=== PATIENT | female | born 1980 | race Two or more races ===

== ENCOUNTER → 2024-07-11 | Outpatient (CLI) | payer BC, SELFPAY ==
--- NOTE | 2024-07-11 15:15 | XR_ITS ---
Examination: Screening digital mammography, bilateral Computer aided detection 3-D breast Tomosynthesis, bilateral Date and time of exam: July 11, 2024 1516 hours Compared to mammograms dating to October 15, 2021 Indication: Screening Technique: Nonmagnified MLO, CC views of the breasts to been obtained, reconstructed from 3-D Tomosynthesis images. R2 computer aided detection program utilized for evaluation of suspicious masses and/or abnormal calcifications. 3-D Tomosynthesis images obtained. Findings: The breasts are heterogeneously dense, which may obscure small masses 10 mm focal asymmetry upper outer left breast Benign calcifications Impression: BI-RADS Category 0: Incomplete: Need additional imaging evaluation 10 mm focal asymmetry upper outer left breast, recommend follow-up spot tomographic views of this asymmetry as well as bilateral breast sonography to complete the workup
--- NOTE | 2024-07-11 15:27 | XR_ITS ---
Examination: Knee, right , 3 views Technique: Knee AP, lateral, oblique 3 views Date and time of exam: July 11, 2024 1537 hours INDICATIONS: Knee pain one year. FINDINGS: Moderate osteopenia Mild to moderate tricompartment osteoarthritis, most severe medial patellofemoral joints Moderate knee effusion No fracture IMPRESSION: Mild to moderate tricompartment osteoarthritis
== END | disposition home or self-care (01) ==
LOC: CDIM 14:57
PROVIDERS: Referring Provider Physician Assistant; Visit Provider Physician Assistant
DX: Z12.31 Encounter for screening mammogram for malignant neoplasm of breast (principal); R92.8 Other abnormal and inconclusive findings on diagnostic imaging of breast; N64.89 Other specified disorders of breast; M17.12 Unilateral primary osteoarthritis, left knee
CPT/HCPCS: 73562; 77063; 77067

== ENCOUNTER → 2024-09-04 | Outpatient (CLI) | payer BC, SELFPAY ==
--- NOTE | 2024-09-04 | XR_ITS ---
Examination: Diagnostic digital mammography, unilateral, left Computer aided detection 3-D breast Tomosynthesis, unilateral Date and time of exam: September 04, 2024 0934 hours INDICATIONS: Mammogram July 11, 2024 10 mm focal asymmetry outer left breast CC view Technique: Nonmagnified MLO, CC views of the left breast have been obtained, reconstructed from 3-D Tomosynthesis images. R2 computer aided detection program utilized for evaluation of suspicious masses and/or abnormal calcifications. 3-D Tomosynthesis images obtained. Findings: The breast is heterogeneously dense, which may obscure small masses No suspicious mass is depicted Impression: BI-RADS category 2: Benign findings Return to yearly follow-up mammography
--- NOTE | 2024-09-04 09:00 | XR_ITS ---
Examination: Breast ultrasound complete, bilateral Date and time of exam: September 04, 2024 0916 hours INDICATIONS: Mammogram July 11, 2024 10 mm focal asymmetry upper outer left breast Technique: Real-time grayscale ultrasonographic imaging bilateral breasts, including all 4 quadrants as well as nipple retroareolar and axillary regions. Findings: Sonographic images right breast Multiple benign cysts, the largest in the 6:00 position 6 x 5 mm No solid nodules Sonographic images left breast Benign cysts, the largest in the 9:00 position 13 x 11 mm Solid nodules not depicted IMPRESSION: BI-RADS Category 2: Benign findings
== END | disposition home or self-care (01) ==
PROVIDERS: PCP Physician Assistant; Referring Provider Physician Assistant; Visit Provider Physician Assistant
DX: R92.323 Mammographic fibroglandular density, bilateral breasts (principal); N60.01 Solitary cyst of right breast; N60.02 Solitary cyst of left breast
CPT/HCPCS: 76641; 77061; 77065; G0279

== ENCOUNTER 2024-11-01 08:15 | Emergency (ER) | payer BC, SELFPAY ==
[2024-11-01 08:16] VITALS: BMI 28.8
[2024-11-01 08:23] VITALS: BP 127/87; PULSE 83; RESP 16; TEMP 36.7; O2SAT 97
--- NOTE | 2024-11-01 08:28 | XR_ITS ---
Examination: CT abdomen and pelvis without contrast. Coronal 3-D reconstructions. Sagittal 2-D reconstructions. Date and time of exam:November 01, 2024 10:20 PM Comparison August 13, 2010 INDICATIONS: Right flank pain beginning 2 days ago CTDI: vol (mGy): 8.04 DLP: (mGycm): 423 Technique: Axial images of the abdomen have been obtained, 3 mm slice thickness Intravenous contrast material has not been administered. Low dose protocols were performed. One or more of the following dose reduction techniques were used; automated exposure control, adjustment of the mA and/or KV according to patient size, use of iterative reconstruction technique. Findings: No focal liver or splenic lesions Absent gallbladder No pancreatic or adrenal mass No renal or ureteral calculi, no hydronephrosis 16mm fat-containing umbilical hernia Normal appendix Hypodense 5 cm pelvic mass contiguous with the posterior margin of the uterus, axial image 177, measuring 5 cm Uterus is retroverted Bladder intact No bladder mass or bladder calculi IMPRESSION: No renal or ureteral calculi, no hydronephrosis No bladder mass or bladder calculi Normal appendix 5 cm mass contiguous with the posterior margin of the uterine fundus, please see the pelvic sonogram report today indicating right ovarian cyst and prominence left ovary
--- NOTE | 2024-11-01 08:31 | EDNOTE_ITS ---
ED General RME/HPI General Chief complaint: Abdominal Pain Stated complaint: SHARP PAIN RLQ ABD RADIATING TO BACK SINCE Time Seen by Provider: 11/01/24 08:19 Arrival date/time: 11/01/24 08:15 Limitations: no limitations RME / HPI RME / HPI narrative: DR. TANVI ROSS ED EVALUATION: 43 year old female with past medical history significant for cholecystectomy presents to the Emergency Department with complaint of right lower quadrant pain that radiates to her right flank and right back areas onset 3 days. No associated symptoms. Related Data Previous Rx's ?Medication ?Instructions ?Recorded ibuprofen 600 mg tablet 600 mg PO TID PRN pain #30 t abs 11/01/24 Allergies Allergy/AdvReac Type Severity Reaction Status Date / Time acetaminophen Allergy Mild HIVES Verified 11/01/24 08:18 Review of Systems Review of Systems Systems Reviewed: All systems reviewed, normal except as documented Narrative Review of Systems: GEN: No fever, no chills, no weight loss EYES: No discharge, no visual changes, no pain HEENT: No ear pain, no congestion, no sore throat PULM: No shortness of breath, no cough, no congestion CV: No chest pain, no dyspnea on exertion, no palpitations GI: No nausea, no vomiting, no diarrhea, + right lower quadrant pain that radiates to her right flank and right back areas, no constipation : No frequency, no urgency and no dysuria MUSC/SKEL: No joint pain, + back pain SKIN: No rash PSYCH: No hallucinations, no depression HEME/LYMPH: No easy bleeding or bruising tendencies NEURO: No weakness, no headache Past Medical History Past Medical History RESPIRATORY: 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 ) GASTROINTESTINAL: Positive Gastrointestinal Disorders (H. Pylori 2019) Social History SMOKING STATUS: Never smoker SUBSTANCE USE: does not use ALCOHOL: Never ED Exam General Limitations: Present no limitations General appearance: Present alert and in no apparent distress Head Head exam: Present atraumatic, normocephalic and normal inspection Eye Eye exam: Present normal appearance, PERRL and EOMI ENT ENT exam: Present normal exam, normal oropharynx and mucous membranes moist Neck Neck exam: Present normal inspection, full ROM and trachea midline Chest Chest inspection: Present normal inspection and symmetric chest wall rise Respiratory Respiratory exam: Present normal lung sounds bilaterally Cardiovascular Cardiovascular exam: Present regular rate, normal rhythm and normal heart sounds Abdominal Exam Abdominal exam: Present soft, tenderness (right lower quadrant tenderness, right flank tenderness) and normal bowel sounds Extremities Exam Extremities exam: Present normal inspection and full ROM Back Exam Back exam: Present normal inspection and full ROM Neurological Exam Neurological exam: Present alert, oriented X3 and CN II-XII intact Psychiatric Psychiatric exam: Present normal affect and normal mood Skin Skin exam: Present warm, dry, intact and normal color Course Quality Measures none Orders Category Date Time Status CT abdomen pelvis wo con Stat Exams 11/01/24 08:28 Completed US pelvic complete Stat Exams 11/01/24 08:29 Completed CBC Stat Lab 11/01/24 09:43 Completed Comprehensive Metabolic Panel Stat Lab 11/01/24 09:43 Completed HCG,Qualitative Serum Stat Lab 11/01/24 09:43 Completed Urinalysis Stat Lab 11/01/24 08:48 Completed Ketorolac Inj [Toradol Inj] Med 11/01/24 08:29 Discontinued 30 mg IM X1 ONE Vital Signs Vital signs: Vital Signs Temperature 98.0 F 11/01/24 08:23 Pulse Rate 83 11/01/24 08:23 Respiratory Rate 16 11/01/24 08:23 Blood Pressure 127/87 H 11/01/24 08:23 Pulse Oximetry (%) 97 11/01/24 08:23 Oxygen Delivery Method Room Air 11/01/24 08:23 Discharge Plan Plan Patient Disposition: HOME (Self Care) Discharge Disposition comment: You need to repeat a pelvic ultrasound in 6 months. Your right ovarian cyst is 2.5 cm and your left ovary is prominent . Patient condition on transfer: Stable Prescriptions/Referrals Prescriptions/Med Rec: New ibuprofen 600 mg tablet 600 mg PO TID PRN (Reason: pain) Qty: 30 0RF Referrals: Anna Reed PA-C [Primary Care Provider] - In 1 week Problem List Clinical Impression: Ovarian cyst Patient/Caregiver Discharge Instructions Print Language: Dutch Stand Alone Forms: Kenia Award Info., Patient Portal Info Letter MDM Narrative [facility] hospital course: Prisclila Davey am scribing for and in the presence of Dr. Edmond. Clinical Information Provided by patient Medical Records Reviewed [facility] Meds/Rx Considered, not Ordered None Labs/Rad/Tests considered, not Ordered None Chronic Illness/Social Conditions Add or document further as needed: cholecystectomy Imaging Radiology reports / interpretation(s): Procedure(s): US pelvic complete Accession Number(s): [id number] cc: Anna Reed; Armando Edmond MD; Dean Eng MD~ Examination: Pelvic ultrasound, transabdominal, complete Technique: Transabdominal ultrasound of the pelvis performed using grayscale imaging Date and time of exam: November 01, 2024 0855 hours INDICATIONS: Right-sided pelvic pain beginning 3 days ago FINDINGS: Uterus 10.4 cm endometrial stripe 1.3 cm 8 mm cyst in the endometrium The fundus 4 mm calcification in the endometrium No intrauterine gestation No uterine mass Right ovary 5.5 cm arterial flow, 2.3 x 1.7 x 1.7 cm simple cyst Left ovary 4.9 cm arterial flow IMPRESSION: No uterine mass or intrauterine gestation Right ovarian simple cyst 2.3 x 1.7 x 1.7 cm Prominent left ovary, recommend 6 month follow-up pelvic sonography Dictated By: Dean Eng MD Procedure(s): CT abdomen pelvis wo [facility] Accession Number(s): [id number] cc: Anna eRed; Armando Edmond MD; Dean Eng MD~ Examination: CT abdomen and pelvis without contrast. Coronal 3-D reconstructions. Sagittal 2-D reconstructions. Date and time of exam:November 01, 2024 10:20 PM Comparison August 13, 2010 INDICATIONS: Right flank pain beginning 2 days ago CTDI: vol (mGy): 8.04 DLP: (mGycm): 423 Technique: Axial images of the abdomen have been obtained, 3 mm slice thickness Intravenous contrast material has not been administered. Low dose protocols were performed. One or more of the following dose reduction techniques were used; automated exposure control, adjustment of the mA and/or KV according to patient size, use of iterative reconstruction technique. Findings: No focal liver or splenic lesions Absent gallbladder No pancreatic or adrenal mass No renal or ureteral calculi, no hydronephrosis 16mm fat-containing umbilical hernia Normal appendix Hypodense 5 cm pelvic mass contiguous with the posterior margin of the uterus, axial image 177, measuring 5 cm Uterus is retroverted Bladder intact No bladder mass or bladder calculi IMPRESSION: No renal or ureteral calculi, no hydronephrosis No bladder mass or bladder calculi Normal appendix 5 cm mass contiguous with the posterior margin of the uterine fundus, please see the pelvic sonogram report today indicating right ovarian cyst and prominence left ovary Dictated By: Dean Eng MD Medication Administration(s) Medication Administration History Discontinued Medications Ketorolac Tromethamine (Ketorolac Inj 60 Mg/2 Ml Vial) 30 mg IM X1 ONE Stop: 11/01/24 08:30 Last Admin: 11/01/24 08:48 Dose: 30 mg Documented By: DO Diagnosis Differential diagnosis: kidney stones, pyelonephritis, UTI Most likely dx, and/or detailed dx discussion: Ovarian cyst Dispositon Disposition: Discharge Home
[2024-11-01] MEDS: KETOROLAC INJ 60 MG/2 ML VIAL 30 MG IM (08:48)
[2024-11-01 09:12] LABS: Collection Type, Urine Clean Catch
[2024-11-01 09:22] LABS: Bilirubin,Urine Negative (Negative); Blood,Urine 1+ (Negative); Clarity,Urine Clear (Clear/Hazy); Color,Urine Yellow (Lt Yel-Yel); Glucose, Urine Negative (Negative); Ketones,Urine Negative (Negative); Leukocyte Esterase,Urine Negative (Negative); Nitrite,Urine Negative (Negative); Protein,Urine Negative (Neg - Trace); RBC,Urine 6 /hpf (0-3); Specific Gravity,Urine 1.022 (1.001-1.035); Squamous Epithelial Cell,Urine < 1 /hpf (0-5); Urobilinogen,Urine Negative mg/dL (0.0-1.0); WBC,Urine 2 /hpf (0-5)
[2024-11-01 09:52] LABS: Basophils % (Auto) 1 % (0-2.5); Eosinophils # (Auto) 0.1 Thou/mm3 (0.0-0.5); Eosinophils % (Auto) 1 % (0-10); Hematocrit 34.7 % (36.0-46.0); Hemoglobin 12.3 g/dL (12.0-16.0); Immature Granulocytes % (Auto) 0 % (0-0); Immature Granulocytes Auto 0.01 Thou/mm3 (0.00-0.00); Lymphocytes # (Auto) 1.2 Thou/mm3 (1.0-4.8); Lymphocytes % (Auto) 29 % (10-50); Mean Corpuscular HGB Conc 35.4 g/dl (31.0-37.0); Mean Corpuscular Hemoglobin 30.5 pg (25.0-35.0); Mean Corpuscular Volume 86 fL (80-100); Monocytes # (Auto) 0.3 Thou/mm3 (0.0-0.8); Monocytes % (Auto) 8 % (0-12); Neutrophils # (Auto) 2.5 Thou/mm3 (1.8-7.7); Neutrophils % (Auto) 61 % (37-80); Nucleated Red Blood Cell % 0 /100 WBC (0); Platelet Count 269 Thou/mm3 (140-440); RDW Standard Deviation 38.3 fL (36.4-46.3); Red Blood Count 4.03 Miln/mm3 (4.00-5.20); White Blood Count 4.1 Thou/mm3 (3.6-11.0)
[2024-11-01 10:11] LABS: Alanine Aminotransferase 14 U/L (10-49); Albumin, Serum 4.3 gm/dL (3.5-5.0); Albumin/Globulin Ratio 1.7 (1.2-2.2); Alkaline Phosphatase 73 U/L (46-116); Anion Gap 10 (7-16); BUN/Creatinine Ratio 12 Ratio (12-20); Bilirubin,Total 0.6 mg/dL (0.3-1.2); Blood Urea Nitrogen 7 mg/dL (9-23); Calcium 9.3 mg/dL (8.3-10.6); Calcium (Corrected) 9.3 mg/dL (8.5-10.1); Carbon Dioxide 27.4 mMol/L (20.0-31.0); Chloride 100 mMol/L (98-107); Creatinine (Component) 0.6 mg/dL (0.6-1.3); Estimated Creatinine Clearance 119.6 mL/min (>60); Globulin 2.6 gm/dL (2.3-3.5); Glucose 94 mg/dL (74-106); Osmolality,Calculated 271 (275-295); Potassium 3.7 mMol/L (3.4-5.1); Sodium 137 mMol/L (136-145); Total Protein 6.9 gm/dL (5.7-8.2); eGFR > 60 See Note
[2024-11-01 10:18] LABS: HCG,Qualitative Serum Negative
[2024-11-01 11:43] VITALS: BP 116/75; PULSE 60; RESP 18; O2SAT 99
== END 2024-11-01 11:46 | disposition home or self-care (01) ==
PROVIDERS: Emergency Provider Emergency Medicine; PCP Physician Assistant
DX: N83.291 Other ovarian cyst, right side (principal); N85.8 Other specified noninflammatory disorders of uterus; K42.9 Umbilical hernia without obstruction or gangrene
CPT/HCPCS: 36415; 74176; 76856; 80053; 81001; 84703; 85025; 96372; 99284; J1885

== ENCOUNTER 2024-12-07 09:11 | Outpatient (AMB) | payer BC, SELFPAY ==
[2024-12-07 09:37] VITALS: BP 109/74; PULSE 73; RESP 17; TEMP 36.5; O2SAT 97; BMI 29.7
--- NOTE | 2024-12-07 09:37 | AMB.GYNCLNOT ---
Vital Signs 12/07/24 09:37 Height 1.6 m Height Method Measured Weight 76.26 kg Weight Measurement Method Standing Scale BMI 29.7 BP 109/74 Blood Pressure Source Automatic Cuff Blood Pressure Location Right Upper Arm Position Sitting Respiration 17 Pulse 73 Pulse Source Monitor Temp 97.7 F Temp Source Temporal Artery Scan Pulse Oximetry (%) 97 Oxygen Delivery Method Room Air Allergies/Home Meds Allergies & Medications Allergies acetaminophen Allergy (Mild, Verified 12/07/24 09:38) HIVES Intake Visit Data Collection New Patient or Established: New Patient (never been to [facility]) Reason for Visit:: REF OVARIAN CYST Consent obtained for Telemed Visit: No Seen by Clinical Staff ONLY (RN/MA): No Background Investigator Required: No Do You Feel Safe at Home: Yes Authorities Contacted: N/A PCP or OBGYN visit in last 3 months: Yes Hx Now: No Are you currently on any form of Control: No Last menstrual period: 11/19/24 Pain Present Currently: No Pain Scale Used: Todd-Engle/Numerical Pain scale:: 0 Smoking Status Smoking Status: Never smoker 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 Menstrual regularity: regular Flow: normal Monthly: Yes How many days does period last: 7 Age at menarche: 14 Menopausal: No Currently sexually active: Yes 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 1. Little interest or pleasure in doing things: not at all 2. Feeling down, depressed, or hopeless: not at all Total score: 0 PHQ-9 3. Trouble falling or staying asleep, or sleeping too much: Not at all 4. Feeling tired or having little energy: Not at all 5. Poor appetite or overeating: Not at all 6. Feeling bad about yourself - or that you are a failure or have let yourself or your family down: Not at all 7. Trouble concentrating on things, such as reading the newspaper or watching television: Not at all 8. Moving or speaking so slowly that other people could have noticed? - Or the opposite - being so fidgety or restless that you have been moving around a lot more than usual: not at all 9. Thoughts that you would be better off or of hurting yourself in some way: Not at all Total score: 0 If you checked off any problems, how difficult have these problems made it for you to do your work, take care of things at home, or get along with other people?: not difficult at all Source: Developed by Drs. Fidel Alvarado, Hilaria White, Jose Guadalupe Akhtar and colleagues, with an educational ramón from [employer]. Social History Living Situation History Lives With: Family Housing: House Tobacco History Smoking Status: Never smoker Alcohol History Alcohol Intake: Never Domestic Abuse History Do You Feel Safe at Home: Yes History of Present Illness HPI Narrative Nakia Bill, a 44-year-old female, presents for consultation regarding an ovarian cyst discovered during an emergency room visit on November 01. She initially sought medical attention due to concerns about potential menopause symptoms and abnormal menstrual patterns. The patient reports experiencing severe headaches before her menstrual periods, which she describes as not normal. She also notes unusually heavy menstrual flow and feeling extremely cold, particularly at night, requiring the use of a heating blanket. During ovulation, she experiences heavy vaginal discharge. Additionally, she reports significant pain during bowel movements while menstruating. On November 01, Nakia visited the emergency room due to severe right-sided abdominal pain. Imaging studies revealed an ovarian cyst, which doctors believed had ruptured. They also noted abnormalities on the other side. Since the ER visit, the pain has improved but not completely resolved. She currently experiences slight discomfort, especially when wearing tight clothing. Nakia's mother from breast cancer, and her sister has tested positive for a genetic mutation associated with increased cancer risk. The patient has not undergone genetic testing herself. She reports no other significant medical history apart from a previous gallbladder surgery and the recent discovery of breast cysts during a mammogram. 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 Otherwise negative. Diagnostic Test Results and Labs: - CT scan (11/01/2024): Right ovarian hemorrhagic cyst (ruptured), left ovarian simple cyst measuring 2 cm x 5 cm - Ultrasound (11/01/2024): Confirmed ovarian cysts Exam General General Appearance: alert, in no apparent distress and healthy appearing Head Head exam: atraumatic Neck Neck exam: Present normal inspection and trachea midline Chest Chest inspection: Present normal inspection and symmetric chest wall rise External exam: Present normal external exam; Absent tenderness Neuro Neurological exam: Present oriented X3 Psych Psychiatric exam: Present normal affect and normal mood Office Procedures OB Clinic LOC & Office Proc's Nursing/Assessment Patient Status: Initial/New Patient OB Clinic Nursing Assessment: Medication Reconciliation and Update PMH in EMR OB Clinic Coordination of Care: Complex Care and Chronic Disease 1-5, Consent,records obtained, informed consent, Education Simp Pt/Fam and 4+ Authorizations needed New Patient Charge New Patient Point Assignment: [id number] New Patient 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 Left ovary has 2x5 cm simple cyst. Patient reports discomfort, especially with tight clothing. Plan: - Order repeat pelvic ultrasound to reassess cyst size - Order hormone panel: LH, FSH, estrogen - Order thyroid panel - Follow up in 1 week to review results and determine management plan - Consider laparoscopic procedure if cyst is enlarging Menstrual Irregularities Assessment: Heavy menstrual flow, severe headaches before menses, pain with bowel movements during menses. Patient feels cold. Plan: - Evaluate hormone levels (as ordered in ovarian cyst workup) - Reassess symptoms at follow-up appointment Family History of Breast Cancer Assessment: Maternal history of breast cancer. Sister has high-risk genetic test results. Plan: - Recommend genetic testing for BRCA and other hereditary cancer genes - Obtain insurance authorization for genetic testing - Defer genetic testing until after insurance change in December - Discuss results and implications at follow-up if testing is performed Breast Cysts Assessment: Recent mammogram shows multiple breast cysts requiring follow-up. Plan: - Review recent mammogram results - Correlate findings with hormone panel results - Discuss appropriate follow-up at next appointment
== END 2024-12-07 10:37 | disposition home or self-care (01) ==
LOC: HODSOBC 09:11
PROVIDERS: Supervising Provider Obstetrics & Gynecology; Visit Provider Obstetrics & Gynecology
DX: N83.292 Other ovarian cyst, left side (principal); N83.201 Unspecified ovarian cyst, right side; N93.9 Abnormal uterine and vaginal bleeding, unspecified; N60.02 Solitary cyst of left breast; N60.01 Solitary cyst of right breast; Z80.3 Family history of malignant neoplasm of breast; Z90.49 Acquired absence of other specified parts of digestive tract
CPT/HCPCS: 99203; 99213; G0463

== ENCOUNTER → 2024-12-07 | Outpatient (CLI) | payer BC, SELFPAY ==
[2024-12-07 12:31] LABS: Follicle Stimulating Hormone 2.54 mIU/mL (See Note)
[2024-12-07 12:35] LABS: Thyroid Stimulating Hormone 1.81 uIU/mL (0.55-4.78)
[2024-12-24 10:51] LABS: Estradiol, Free 4.69 pg/mL; Estradiol, Total 279 pg/mL
== END | disposition home or self-care (01) ==
LOC: COPL 11:09
PROVIDERS: PCP Physician Assistant; Referring Provider Obstetrics & Gynecology; Visit Provider Obstetrics & Gynecology
DX: N93.9 Abnormal uterine and vaginal bleeding, unspecified (principal)
CPT/HCPCS: 36415; 82670; 82681; 83001; 84443

== ENCOUNTER → 2024-12-24 | Outpatient (CLI) | payer BC, SELFPAY ==
--- NOTE | 2024-12-24 15:45 | XR_ITS ---
Examination: Pelvic ultrasound, transabdominal, complete Technique: Transabdominal ultrasound of the pelvis performed using grayscale imaging Date and time of exam: December 24, 2024 1611 hours INDICATIONS: History right ovarian cyst 23 mm November 01, 2024 FINDINGS: Uterus 10.1 cm endometrial stripe 1.0 cm No uterine mass or intrauterine gestation Right ovary 3.8 cm arterial flow Left ovary 3.3 cm arterial flow, 2.4 x 1.6 x 2.1 cm simple cyst IMPRESSION: Left ovarian simple cyst 2.4 x 1.6 x 2.1 cm
== END | disposition home or self-care (01) ==
PROVIDERS: PCP Physician Assistant; Referring Provider Obstetrics & Gynecology; Visit Provider Obstetrics & Gynecology
DX: N83.292 Other ovarian cyst, left side (principal)
CPT/HCPCS: 76856